=== PATIENT | female | born 1960 | race Caucasian/White ===

== ENCOUNTER → 2018-08-10 12:10 | Outpatient (CLI) | payer OTHER, SELFPAY ==
--- NOTE | 2018-08-10 | DI.MG.S_ITS ---
BILATERAL DIGITAL SCREENING MAMMOGRAM 3D/2D WITH CAD: 08/10/2018 CLINICAL: Routine screening. Comparison is made to exams dated: 05/19/2016 mammogram - [facility], 02/10/2015 mammogram, and 09/10/2013 mammogram - [facility]. The tissue of both breasts is heterogeneously dense. This may lower the sensitivity of mammography. Current study was also evaluated with a Computer Aided Detection (CAD) system. A linear scar marker and a circular mole marker overlie the inner right breast. No significant masses, calcifications, or other findings are seen in either breast. There has been no significant interval change. IMPRESSION: NEGATIVE There is no mammographic evidence of malignancy. A 1 year screening mammogram is recommended. This exam was interpreted at Station ID: [id number]. NOTE: For mammograms, a report in lay terms will be sent to the patient. Approximately 15% of breast malignancies will not be visualized mammographically. In the management of a palpable breast mass, a negative mammogram must not discourage biopsy of a clinically suspicious lesion. Electronically Signed By: Fahad gould/ronald:08/13/2018 01:37:04 copy to: Eve Seo letter sent: Normal Exam ACR BI-RADS Category 1: Negative 3341F
== END ==
PROVIDERS: Visit Provider Nurse Practitioner Family
DX: Z12.31 Encounter for screening mammogram for malignant neoplasm of breast (principal); M85.88 Other specified disorders of bone density and structure, other site; Z78.0 Asymptomatic menopausal state; E55.9 Vitamin D deficiency, unspecified
CPT/HCPCS: 77063; 77067; 77080

== ENCOUNTER → 2021-01-02 09:32 | Outpatient (CLI) | payer OTHER, SELFPAY ==
--- NOTE | 2021-01-02 | DI.RAD.S_ITS ---
PROCEDURE: XR DEXA AXIAL SKELETON INDICATIONS: ROUTINE SCREENING COMPARISON: [facility], CR, XR DEXA AXIAL SKELETON, 08/10/2018, 13:11. FINDINGS: This blank DEXA report has been sent in error by the PACS system. The correct and complete report will be forthcoming in 1-2 days. Thank you for your patience and understanding. Dictated by: Pamela Crum MD, PhD on 01/02/2021 at 10:12 Approved by: Pamela Crum MD, PhD on 01/02/2021 at 10:12
--- NOTE | 2021-01-02 | DI.MG.S_ITS ---
BILATERAL DIGITAL SCREENING MAMMOGRAM 3D/2D WITH CAD: 01/02/2021 CLINICAL: Routine screening. Comparison is made to exams dated: 08/10/2018 mammogram, 05/19/2016 mammogram - [facility], and 02/10/2015 mammogram - [facility]. The tissue of both breasts is heterogeneously dense. This may lower the sensitivity of mammography. Current study was also evaluated with a Computer Aided Detection (CAD) system. No significant masses, calcifications, or other findings are seen in either breast. There has been no significant interval change. IMPRESSION: NEGATIVE There is no mammographic evidence of malignancy. A 1 year screening mammogram is recommended. This exam was interpreted at Station ID: [id number]. NOTE: For mammograms, a report in lay terms will be sent to the patient. Approximately 15% of breast malignancies will not be visualized mammographically. In the management of a palpable breast mass, a negative mammogram must not discourage biopsy of a clinically suspicious lesion. Electronically Signed By: Tommie Vera M.D., jr/ronald:01/02/2021 09:58:34 copy to: Eve Seo letter sent: Normal Exam ACR BI-RADS Category 1: Negative 3341F
== END ==
PROVIDERS: PCP Nurse Practitioner Family; Referring Provider Nurse Practitioner Family; Visit Provider Nurse Practitioner Family
DX: Z12.31 Encounter for screening mammogram for malignant neoplasm of breast (principal); M85.88 Other specified disorders of bone density and structure, other site
CPT/HCPCS: 77063; 77067; 77080

== ENCOUNTER 2023-03-22 12:24 | Emergency (ER) | payer OTHER, SELFPAY ==
[2023-03-22 12:54] VITALS: BP 147/88; PULSE 50; RESP 16; TEMP 36.2; O2SAT 99
[2023-03-22 13:25] LABS: Add Manual Diff / Slide Review NO; Basophils Absolute Auto 100 /uL (0-100); Basophils Percent Auto 0.9 % (0-2); Eosinophils Absolute Auto 100 /uL (0-450); Eosinophils Percent Auto 1.3 % (2-4); Hematocrit 37.8 % (36-46); Hemoglobin 13.1 g/dL (12.0-16.0); Lymphocytes Absolute Auto 1900 /uL (1100-4500); Lymphocytes Percent Auto 25.8 % (25-40); Mean Corpuscular HGB Conc 34.7 % (30-36); Mean Corpuscular Hemoglobin 31.9 PG (26-34); Mean Corpuscular Volume 91.8 fL (80-100); Monocytes Absolute Auto 400 /uL (0-900); Monocytes Percent Auto 6.2 % (3-14); Neutrophils Absolute Auto 4700 /uL (1500-7000); Neutrophils Percent Auto 65.8 % (50-75); Platelet Count 225 X10^3/uL (150-400); Red Blood Cell Count 4.12 X10^6/uL (4.0-5.2); Red Cell Distribution Width 12.6 % (11.6-14.8); White Blood Cell Count 7.2 X10^3/uL (4.5-11.0)
[2023-03-22 13:26] LABS: Prothrombin Time 11.4 SECONDS (10.1-12.7)
[2023-03-22 13:29] LABS: PTT Partial Thromboplastin Tim 29 SECONDS (26-36)
[2023-03-22 13:36] LABS: Alanine Aminotransferase 24 IU/L (<35); Albumin 4.6 g/dL (3.5-5.0); Albumin Globulin Ratio 1.6 (1.0-2.8); Alkaline Phosphatase 78 U/L (38-126); Aspartate Aminotransferase 31 IU/L (14-36); BUN Creatinine Ratio 24.2 (6-22); Bilirubin Total 0.4 mg/dL (0.2-1.3); Blood Urea Nitrogen 16 mg/dL (7-17); Calcium 9.4 mg/dL (8.4-10.2); Carbon Dioxide 29 mmol/L (22-32); Chloride 106 mmol/L (98-107); Creatine Kinase 115 U/L (30-135); Estimated Glomerular Filt Rate > 60 mL/min (>60); Globulin 2.8 g/dL (1.7-4.1); Glucose 88 mg/dL (80-110); HEMOLYSIS < 15 (0-50); Magnesium 2.3 mg/dL (1.6-2.3); Potassium 3.4 mmol/L (3.4-5.1); Sodium 140 mmol/L (137-145); Total Protein 7.4 g/dL (6.3-8.2)
[2023-03-22 13:44] LABS: Troponin I < 0.012 ng/mL (0.01-0.034)
[2023-03-22 14:45] VITALS: BP 157/67; PULSE 55; RESP 16; O2SAT 97
[2023-03-22 14:46] VITALS: PULSE 50; O2SAT 99
--- NOTE | 2023-03-22 14:46 | PC.NURSE ---
pt states visual changes have resolved. pt denies any problems at this times states she just wants to find out what caused the graying of her vision
[2023-03-22 15:00] VITALS: BP 158/70; PULSE 55; O2SAT 99
[2023-03-22 15:23] LABS: UR Morphine/Opiate cutoff 300 Negative (Negative); Ur Creatinine Normal (Normal); Ur Specific Gravity Normal (Normal); Urine Amphetamines Negative (Negative); Urine Barbiturates Negative (Negative); Urine Benzodiazepines Negative (Negative); Urine Cocaine Negative (Negative); Urine MDMA Negative (Negative); Urine Methadone Negative (Negative); Urine Methamphetamines Negative (Negative); Urine Oxycodone Negative (Negative); Urine Phencyclidine Negative (Negative); Urine Tetrahydrocannabinol Negative (Negative); Urine Tricyclic Antidepressant Negative (Negative); Urine pH Normal (Normal)
--- NOTE | 2023-03-22 15:50 | ED.NEUROSD ---
HPI - Neuro Symptoms/Deficit General Chief Complaint: Neuro Symptoms/Deficit Stated Complaint: L eye clouded vision, greyed out Time Seen by Provider: 03/22/23 15:42 Source: patient Mode of arrival: Ambulatory History of Present Illness HPI Narrative: Patient is a 62-year-old without significant past medical history presenting today with left visual changes. She reports that her left eye went cloudy like she was looking through wax paper. She denies any quadrant loss of vision no flashing of lights halos or floaters. Her eye was slightly irritated secondary to rubbing it she thought her I was dry but it was not significantly painful. She denies any other focal deficits no facial droop difficulty speaking numbness tingling weakness chest pain or any other symptoms. She wears glasses only no contacts. On Anticoagulants: No Related Data Home Medications Medication Instructions Recorded Confirmed acetaminophen 500 mg tablet 1,000 mg PO Q6HP ##0 06/10/13 (Tylenol Extra Strength) ibuprofen 200 mg tablet (Advil) 400 mg PO PRN ##0 06/10/13 Allergies Allergy/AdvReac Type Severity Reaction Status Date / Time povidone-iodine Allergy Unknown RASH (FROM Verified 03/22/23 13:01 [POVIDONE-IODINE] BETADINE) Review of Systems Review of Systems ROS Unobtainable: All systems reviewed & are unremarkable except as noted in HPI and below Hematologic/Lymphatic On Anticoagulants: No Patient History Surgical History History of tonsillectomy Social History Smoking Status: Never smoker Smoking Status: Never smoker alcohol intake frequency: 0-2 drinks per day Substance Use Type: does not use Exam Initial Vital Signs Initial Vital Signs: Vital Signs Temperature 97.1 F L 03/22/23 12:54 Pulse Rate 50 L 03/22/23 12:54 Respiratory Rate 16 03/22/23 12:54 Blood Pressure 147/88 H 03/22/23 12:54 Pulse Oximetry 99 03/22/23 12:54 Oxygen Delivery Method Room Air 03/22/23 12:54 GENERAL: Alert pleasant 62-year-old female HEENT: Head atraumatic,EOMI, pupils reactive, face symmetric, moist mucous membranes EYE left eye 26mmHg EOMI, negative bedside ultrasound right eye 20mmHg EOMI CARDIOVASCULAR: Regular rate and rhythm without murmurs, rubs or gallops. RESPIRATORY: Breath sounds equal bilaterally, no wheezes rales or rhonchi. ABDOMEN: Soft, nontender. Normoactive bowel sounds all 4 quadrants. No guarding or rebound. EXTREMITIES: Normal range of motion, no clubbing or edema. Neurovascularly intact NEUROLOGICAL: Alert and oriented x4.Normal gait and speech. Cranial nerves II through XII grossly intact. Good nxaodx-lq-uweu, good seri-eb-lkee, strength equal bilaterally, no dysarthria or aphasia, sensation in tact to soft touch bilaterally, no visual changes, no facial droop SKIN: Warm, dry, no laceration, no petechiae, no rashes or lesions. Scores NIH Stroke Scale Level of Conciousness: Alert, keenly responsive Ask month/age: Answers both questions correctly. Open/close eyes, close hand: Performs both tasks correctly Best gaze horizontal: Normal Visual resendiz: No visual loss Facial palsy: Normal symetrical movement Left arm drift: No drift for full 10 sec Right arm drift: No drift for full 10 sec Left leg drift: No drift for full 5 sec Right leg drift: No drift for full 5 sec Limb ataxia: Absent Sensory on face/arms/legs: Normal, no sensory loss Best language: No aphasia, normal Dysarthria: Normal Extinction or inattention: No abnormality Total NIH Stroke scale score: 0 Course Orders Ordered: ED Orders 03/22/23 13:01 EKG-12 Lead Stat 03/22/23 13:06 Complete Blood Count AUTO DIFF Stat Comprehensive Metabolic Panel Stat Magnesium Stat PTT Partial Thromboplastin Sukhdev Stat Prothrombin Time INR Stat Troponin & CK Cardiac Panel Stat 03/22/23 15:05 Urine Drug Screen, Rapid Stat 03/22/23 15:50 Urinalysis and Microscopic Stat Discontinued Medications Ondansetron HCl (Ondansetron 4 Mg/2 Ml Inj) 4 mg IV NOW PRN PRN Reason: Nausea And Vomiting Ondansetron HCl (Ondansetron 4 Mg Odt) 4 mg SL NOW PRN PRN Reason: Nausea And Vomiting Proparacaine HCl (Proparacaine 0.5% Ophth Cynthia) 1 drops EYE-BOTH NOW ONE Stop: 03/22/23 15:56 Last Admin: 03/22/23 16:10 Dose: 1 drop Documented By: LILIAM Vital Signs Vital signs: Vital Signs - 8 hr 03/22/23 12:54 03/22/23 14:45 03/22/23 14:46 Temperature 97.1 F L Pulse Rate 50 L 55 L 50 L Respiratory Rate 16 16 Blood Pressure 147/88 H 157/67 H Pulse Oximetry 99 97 99 Oxygen Delivery Method Room Air Room Air 03/22/23 15:00 03/22/23 15:00 03/22/23 16:55 Temperature Pulse Rate 55 L 51 L Respiratory Rate Blood Pressure 158/70 H 162/72 H Pulse Oximetry 99 97 Oxygen Delivery Method Room Air MDM - Neuro Symptoms/Deficit Lab Data 03/22/23 13:06 03/22/23 13:06 Labs: Lab Results 03/22/23 03/22/23 03/22/23 Range/Units 13:06 13:06 13:06 WBC 7.2 (4.5-11.0) X10^3/uL RBC 4.12 (4.0-5.2) X10^6/uL Hgb 13.1 (12.0-16.0) g/dL Hct 37.8 (36-46) % MCV 91.8 (80-100) fL MCH 31.9 (26-34) PG MCHC 34.7 (30-36) % RDW 12.6 (11.6-14.8) % Plt Count 225 (150-400) X10^3/uL Neut % (Auto) 65.8 (50-75) % Lymph % (Auto) 25.8 (25-40) % [place] % (Auto) 6.2 (3-14) % Eos % (Auto) 1.3 L (2-4) % Baso % (Auto) 0.9 (0-2) % Neut # (Auto) 4700 (6033-2164) /uL Lymph # (Auto) 1900 (6250-3853) /uL [place] # (Auto) 400 (0-900) /uL Eos # (Auto) 100 (0-450) /uL Baso # (Auto) 100 (0-100) /uL PT 11.4 (10.1-12.7) SECONDS INR 1.0 (0.9-1.3) APTT 29 (26-36) SECONDS Sodium 140 (137-145) mmol/L Potassium 3.4 (3.4-5.1) mmol/L Chloride 106 (98-107) mmol/L Carbon Dioxide 29 (22-32) mmol/L BUN 16 (7-17) mg/dL Creatinine 0.66 (0.52-1.04) mg/dL Estimated GFR > 60 (>60) mL/min BUN/Creatinine Ratio 24.2 H (6-22) Glucose 88 (80-110) mg/dL Calcium 9.4 (8.4-10.2) mg/dL Magnesium 2.3 (1.6-2.3) mg/dL Total Bilirubin 0.4 (0.2-1.3) mg/dL AST 31 (14-36) IU/L ALT 24 (<35) IU/L Alkaline Phosphatase 78 (38-126) U/L Total Creatine Kinase 115 (30-135) U/L CK-MB (CK-2) TNP CK-MB (CK-2) Rel Index TNP Troponin I < 0.012 (0.01-0.034) ng/mL Total Protein 7.4 (6.3-8.2) g/dL Albumin 4.6 (3.5-5.0) g/dL Globulin 2.8 (1.7-4.1) g/dL Albumin/Globulin Ratio 1.6 (1.0-2.8) U Opiates 300ng/mL cut (Negative) Ur Oxycodone Screen (Negative) Urine Methadone Screen (Negative) Ur Barbiturates Screen (Negative) U Tricyclic Antidepress (Negative) Ur Phencyclidine Scrn (Negative) Ur Amphetamines Screen (Negative) U Methamphetamines Scrn (Negative) Ur MDMA Scrn (Ecstasy) (Negative) U Benzodiazepines Scrn (Negative) Urine Cocaine Screen (Negative) U Marijuana (THC) Screen (Negative) 03/22/23 Range/Units 15:05 WBC (4.5-11.0) X10^3/uL RBC (4.0-5.2) X10^6/uL Hgb (12.0-16.0) g/dL Hct (36-46) % MCV (80-100) fL MCH (26-34) PG MCHC (30-36) % RDW (11.6-14.8) % Plt Count (150-400) X10^3/uL Neut % (Auto) (50-75) % Lymph % (Auto) (25-40) % [place] % (Auto) (3-14) % Eos % (Auto) (2-4) % Baso % (Auto) (0-2) % Neut # (Auto) (6280-7209) /uL Lymph # (Auto) (6300-7098) /uL [place] # (Auto) (0-900) /uL Eos # (Auto) (0-450) /uL Baso # (Auto) (0-100) /uL PT (10.1-12.7) SECONDS INR (0.9-1.3) APTT (26-36) SECONDS Sodium (137-145) mmol/L Potassium (3.4-5.1) mmol/L Chloride (98-107) mmol/L Carbon Dioxide (22-32) mmol/L BUN (7-17) mg/dL Creatinine (0.52-1.04) mg/dL Estimated GFR (>60) mL/min BUN/Creatinine Ratio (6-22) Glucose (80-110) mg/dL Calcium (8.4-10.2) mg/dL Magnesium (1.6-2.3) mg/dL Total Bilirubin (0.2-1.3) mg/dL AST (14-36) IU/L ALT (<35) IU/L Alkaline Phosphatase (38-126) U/L Total Creatine Kinase (30-135) U/L CK-MB (CK-2) CK-MB (CK-2) Rel Index Troponin I (0.01-0.034) ng/mL Total Protein (6.3-8.2) g/dL Albumin (3.5-5.0) g/dL Globulin (1.7-4.1) g/dL Albumin/Globulin Ratio (1.0-2.8) U Opiates 300ng/mL cut Negative (Negative) Ur Oxycodone Screen Negative (Negative) Urine Methadone Screen Negative (Negative) Ur Barbiturates Screen Negative (Negative) U Tricyclic Antidepress Negative (Negative) Ur Phencyclidine Scrn Negative (Negative) Ur Amphetamines Screen Negative (Negative) U Methamphetamines Scrn Negative (Negative) Ur MDMA Scrn (Ecstasy) Negative (Negative) U Benzodiazepines Scrn Negative (Negative) Urine Cocaine Screen Negative (Negative) U Marijuana (THC) Screen Negative (Negative) MDM Narrative Medical decision making narrative: Patient is 62-year-old female who presents with visual changes left eye lasting approximately 4 hours. Symptoms have completely resolved out in the emergency department. No focal deficits no hemianopsia. Pressures in eyes are not consistent with any sort of acute angle glaucoma. Bedside ultrasound does not show any retinal detachment. 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 At this time symptoms are not consistent with stroke NIH stroke scale is 0. Discharge Plan Departure Patient Disposition: Home Clinical Impression: Visual changes Instructions: DI for Glaucoma Activity Restrictions/Additional Instructions: *You have been diagnosed with visual change *What to do: At this time I do recommend that you have an official ophthalmology evaluation. Today the pressures in her eyes are not consistent with an acute angle glaucoma, no evidence of stroke *Continue to take medications as directed *Follow up with your primary care provider in 2-3 days or call [phone] Butler and follow-up *Return to ER if you should have recurrent visual changes flashing lights loss of vision numbness tingling weakness or any new, worsening or concerning symptoms Prescriptions: No Action acetaminophen [Tylenol Extra Strength] 500 MG tablet 1,000 mg PO Q6HP Qty: 0 ibuprofen [Advil] 200 MG tablet 400 mg PO PRN Qty: 0 Referrals: Dane Butler MD [Physician] - Asia Becerra ARNP [Primary Care Provider] - Stand Alone Forms: Patient Portal/API
[2023-03-22] MEDS: PROPARACAINE 0.5% OPHTH SOL 1 DROPS EYE-BOTH (16:10)
[2023-03-22 16:55] VITALS: BP 162/72; PULSE 51; O2SAT 97
[2023-03-22 20:37] LABS: Appearance Urine UA CLEAR; Bilirubin Urine UA NEGATIVE (NEGATIVE); Color Urine UA YELLOW; Glucose Urine UA NEGATIVE (Negative); Ketones Urine UA NEGATIVE (NEGATIVE); Leukocyte Esterase Urine UA NEGATIVE (NEGATIVE); Nitrite Urine UA NEGATIVE (Negative); Occult Blood Urine UA NEGATIVE (Negative); Protein Urine UA NEGATIVE (Negative); Urobilinogen Urine UA 0.2 E.U./dL (0.2)
[2023-03-22 21:08] LABS: Bacteria Urine None Seen; Culture Indicated Urine Cult Not Indicated; RBC Urine None Seen (0-5/HPF); Squamous Epithelial Cell Urine 0-1 /HPF (0-5/HPF); WBC Urine None Seen (0-5/HPF)
== END 2023-03-22 17:06 | disposition home or self-care (01) ==
PROVIDERS: Emergency Provider Emergency Medicine; PCP Nurse Practitioner Family
DX: H53.9 Unspecified visual disturbance (principal)
CPT/HCPCS: 36415; 80053; 80305; 81001; 82550; 83735; 84484; 85025; 85610; 85730; 99283

== ENCOUNTER → 2023-09-23 11:33 | Outpatient (CLI) | payer OTHER, SELFPAY ==
--- NOTE | 2023-09-23 | DI.MG.S_ITS ---
BILATERAL DIGITAL SCREENING MAMMOGRAM 3D/2D WITH CAD: 09/23/2023 CLINICAL: Routine screening. Comparison is made to exams dated: 08/10/2018 mammogram, 01/02/2021 mammogram, and 05/19/2016 mammogram - [facility]. Both breasts are heterogeneously dense, which may obscure small masses (category c / 51-75% glandular tissue). Current study was also evaluated with a Computer Aided Detection (CAD) system. No significant masses, calcifications, or other findings are seen in either breast. IMPRESSION: NEGATIVE There is no mammographic evidence of malignancy. A 1 year screening mammogram is recommended. Based on the Tyrer Cuzick model (a risk assessment model) the patient's lifetime risk is 7.7% and her 10 year risk is 3.5%. According to the ACR, ACS, and NCCN guidelines, an annual breast MRI exam along with mammogram is recommended if the patient's lifetime risk is 20% or greater. This exam was interpreted at Station ID: [id number]. NOTE: For mammograms, a report in lay terms will be sent to the patient. Approximately 15% of breast malignancies will not be visualized mammographically. In the management of a palpable breast mass, a negative mammogram must not discourage biopsy of a clinically suspicious lesion. Electronically Signed By: Flores Nash M.D., PH.D yo/ronald:09/23/2023 23:52:22 copy to: Eve Seo letter sent: Normal Exam ACR BI-RADS Category 1: Negative 3341F
--- NOTE | 2023-09-23 | DI.RAD.S_ITS ---
Bone Density Report Name: DAMON LINDSAY Age: 63 Sex: Female Ethnicity: White Date of : 1960 Indication: osteopenia; Referring Provider: SANTY ZEPEDA Study: Bone densitometry was performed. Exam Date: September 23, 2023 Accession number: [id number] Bone Density: Region BMD T-score Z-score Classification AP Spine(L1-L4) 0.808 -2.2 -0.5 Osteopenia Femoral Neck (Left) 0.702 -1.3 0.1 Osteopenia Total Hip (Left) 0.784 -1.3 -0.2 Osteopenia Femoral Neck (Right) 0.684 -1.5 -0.1 Osteopenia Total Hip (Right) 0.780 -1.3 -0.2 Osteopenia Total Hip Mean 0.782 -1.3 -0.2 Osteopenia World Health Organization criteria for BMD impression classify patients as: Normal (T-score at or above -1.0), Osteopenia (T-score between -1.0 and -2.5), or Osteoporosis (T-score at or below -2.5). 10-year Fracture Risk(1): Major Osteoporotic Fracture 7.8% Hip Fracture 0.8% Reported Risk Factors: [place] (), Neck BMD=0.684, BMI=20.8 (1) FRAX(R) Version 3.08. Fracture probability calculated for an untreated patient. Fracture probability may be lower if the patient has received treatment. Previous Exams: -- Region Exam Age BMD T-score BMD Change BMD Change Date g/cm2 vs Baseline vs Previous -- AP Spine (L1-L4) 09/23/2023 63 0.808 -2.2 -0.024 (-2.9%)# -0.030 (-3.6%)# 01/02/2021 60 0.838 -1.9 0.006 (0.7%) 0.001 (0.1%) 08/10/2018 58 0.837 -1.9 0.005 (0.6%) 0.005 (0.6%) 05/19/2016 55 0.832 -2.0 Total Hip(Left) 09/23/2023 63 0.784 -1.3 -0.022 (-2.7%)# -0.019 (-2.4%)# 01/02/2021 60 0.803 -1.1 -0.003 (-0.3%) 0.008 (1.0%) 08/10/2018 58 0.795 -1.2 -0.010 (-1.3%) -0.010 (-1.3%) 05/19/2016 55 0.805 -1.1 Total Hip(Right) 09/23/2023 63 0.780 -1.3 -0.043 (-5.3%)# -0.033 (-4.0%)# 01/02/2021 60 0.813 -1.1 -0.011 (-1.3%) 0.008 (1.0%) 08/10/2018 58 0.805 -1.1 -0.019 (-2.3%) -0.019 (-2.3%) 05/19/2016 55 0.824 -1.0 -- *Denotes significance at 95% confidence level, LSC for AP Spine = 0.022 g/cm2, LSC for Total Hip = 0.027 g/cm2 # Denotes dissimilar scan types or analysis methods Impression: The patient has low bone mass, based on the Total Spine T-score. The patient has an estimated ten-year risk of hip fracture of 0.8% and an estimated ten-year risk of major fracture of 7.8%, based on the WHO FRAX algorithm. No significant bone loss was observed. Discussion: BONE DENSITY IS LOW AT ONE OR MORE SKELETAL SITES. This patient's lowest T-score is low at one or more skeletal sites. It meets the World Health Organization's (WHO) criteria for low bone mass (T-score between -1.0 and -2.5). The patient's 10-year risk of fracture as calculated by FRAX is less than the threshold where pharmacological therapy is recommended by the National Osteoporosis Foundation (NOF). However, all treatment decisions require clinical judgment and consideration of individual patient factors, including patient preferences, comorbidities, previous drug use, risk factors not captured in the FRAX model (e.g., frailty, falls, vitamin D deficiency, increased bone turnover, interval significant decline in bone density) and possible under or overestimation of fracture risk by FRAX. The patient should follow a healthful lifestyle (good nutrition with adequate calcium and vitamin D, and appropriate weight-bearing exercise). Follow-Up: Consider repeating this study in 2 to 3 years to reassess this patient's status, or sooner if there is some new clinical indication. Reported by: [facility] M.D. on 09/23/2023 12:19:00 PM.
== END ==
PROVIDERS: PCP Family Medicine; Referring Provider Family Medicine; Visit Provider Family Medicine
DX: Z12.31 Encounter for screening mammogram for malignant neoplasm of breast (principal); M85.89 Other specified disorders of bone density and structure, multiple sites
CPT/HCPCS: 77063; 77067; 77080